=== PATIENT | female | born 1995 | race Two or more races ===

== ENCOUNTER 2023-01-19 20:37 | Emergency (ER) | payer OTHER ==
[~2023-01-19] VITALS: Ht 167.6 cm; Wt 52.2 kg
[~2023-01-19 20:37] MED LIST: PRENATAL CAPLE1 EACH PO
[2023-01-19] MEDS ORDERED: PREDNISONE20 MG PO (21:27)
[2023-01-19] MEDS ORDERED: LOSARTAN POTAS100 MG PO (21:27)
[2023-01-19] MEDS ORDERED: NIFEDIPINE ER60 M1 PO (21:27)
[2023-01-19] MEDS ORDERED: HYDROXYCHLOROQ200 MG PO (21:27)
[2023-01-19] MEDS ORDERED: CARVEDILOL25 M1 PO (21:28)
[2023-01-19] MEDS ORDERED: PHOSLO667 M1 PO (21:28)
== END 2023-01-20 03:32 ==
LOC: ER 20:37
DX: U07.1 COVID-19 (principal); Z99.2 Dependence on renal dialysis